=== PATIENT | female | born 1985 | race Caucasian/White ===

== ENCOUNTER 2023-12-08 12:46 | Emergency (ER) | payer SELFPAY ==
[2023-12-08] MEDS: Ondansetron 4 MG/2 ML SDV IVPUSH ONE (13:46)
[2023-12-08] MEDS: Sodium Chloride 0.9% 1,000 ML IV ONE (13:46)
[2023-12-08] MEDS: Metoclopramide 10 MG/2 ML SDV IVPUSH ONE (13:46)
[2023-12-08] MEDS: Ketorolac 30 MG/ML SDV IVPUSH ONE (13:46)
[2023-12-08] MEDS: diphenhydrAMINE 50 MG/ML SDV IVPUSH ONE (13:46)
[2023-12-08 13:52] LABS: BASOPHILS ABSOLUTE AUTO 0.06 K/uL (0.00-0.20); BASOPHILS PERCENT AUTO 0.9 % (0.0-1.0); HEMATOCRIT 37.1 % (37.0-47.0); HEMOGLOBIN 12.1 g/dL (12.0-16.0); IMMATURE GRAN ABSOLUTE AUTO 0.01 K/uL (0.00-0.05); IMMATURE GRAN PERCENT AUTO 0.1 % (0.0-0.4); LYMPHOCYTES ABSOLUTE AUTO 1.88 K/uL (1.00-4.80); LYMPHOCYTES PERCENT AUTO 28.1 % (24.0-44.0); MEAN CORPUSCULAR HEMOGLOBIN 26.7 pg (28.0-32.0); MEAN CORPUSCULAR HGB CONC 32.6 g/dL (32.0-36.0); MEAN CORPUSCULAR VOLUME 81.7 fL (83.0-99.0); MEAN PLATELET VOLUME 10.1 fL (9.4-12.3); MONOCYTES ABSOLUTE AUTO 0.69 K/uL (0.00-0.80); MONOCYTES PERCENT AUTO 10.3 % (0.0-8.0); NEUTROPHILS ABSOLUTE AUTO 3.86 K/uL (1.80-7.70); NEUTROPHILS PERCENT AUTO 57.6 % (41.0-71.0); PLATELET COUNT,PLT 272 K/uL (150-400); RED BLOOD CELL COUNT 4.54 M/uL (4.10-5.30)
[2023-12-08 14:23] LABS: ALBUMIN 3.5 g/dL (3.4-5.0); BILIRUBIN TOTAL 0.4 mg/dL (0.2-1.0); CALCIUM 8.4 mg/dL (8.5-10.1); CARBON DIOXIDE,CO2 23.7 mmol/L (21.0-32.0); CREATININE 0.8 mg/dL (0.6-1.0); EST CRCL DRUG DOSING (CG) 72.65 mL/min; POTASSIUM,K 3.9 mmol/L (3.5-5.1); PROTEIN TOTAL,TP 7.1 g/dL (6.4-8.2)
[2023-12-08 14:29] LABS: CORONAVIRUS COVID-19 NAA NEGATIVE (NEGATIVE); INFLUENZA A NAA NEGATIVE (NEGATIVE); INFLUENZA B NAA NEGATIVE (NEGATIVE)
[2023-12-08 15:49] LABS: APPEARANCE,URINE SLT CLOUDY; BILIRUBIN,URINE NEGATIVE (NEGATIVE); COLOR,URINE YELLOW; GLUCOSE,URINE NEGATIVE (NEGATIVE); KETONES,URINE NEGATIVE (NEGATIVE); LEUKOCYTE ESTERASE,URINE TRACE (NEGATIVE); NITRITE,URINE NEGATIVE (NEGATIVE); OCCULT BLOOD,URINE MODERATE (NEGATIVE); PROTEIN,URINE NEGATIVE (NEGATIVE); UROBILINOGEN,URINE 0.2 EU/dL (<2.0)
[2023-12-08 16:09] LABS: BACTERIA,URINE FEW (NEGATIVE); EPITHELIAL CELLS,URINE OCCASIONAL (NONE-FEW); TRICHOMONAS,URINE PRESENT (NEGATIVE)
== END 2023-12-08 16:12 | disposition home or self-care (01) ==
LOC: MW.ED 12:46
DX: J06.9 Acute upper respiratory infection, unspecified (principal); J44.9 Chronic obstructive pulmonary disease, unspecified; Z79.899 Other long term (current) drug therapy; Z75.8 Other problems related to medical facilities and other health care
CPT/HCPCS: 0240U; 36415; 71045; 80053; 81001; 81025; 83690; 85025; 87086; 87651; 96374; 96375; 99285; J1200; J1885; J2405; J2765; J7030; 99284

== ENCOUNTER 2023-12-27 18:19 | Emergency (ER) | payer SELFPAY ==
[2023-12-27] MEDS: Sodium Chloride 0.9% 1,000 ML IV ONE (20:02)
[2023-12-27] MEDS: Metoclopramide 10 MG/2 ML SDV IVPUSH ONE (20:03)
[2023-12-27] MEDS: Ketorolac 30 MG/ML SDV IVPUSH ONE (20:03)
[2023-12-27] MEDS: diphenhydrAMINE 50 MG/ML SDV IVPUSH ONE (20:03)
[2023-12-27] MEDS: Sodium Chloride 0.9% 2.5 ML Syringe FLUSH PRN (20:04)
[2023-12-27] MEDS: Sodium Chloride 0.9% 10 ML Syringe FLUSH PRN (20:04)
== END 2023-12-27 21:04 | disposition home or self-care (01) ==
LOC: MW.ED 18:19
DX: J06.9 Acute upper respiratory infection, unspecified (principal); G43.909 Migraine, unspecified, not intractable, without status migrainosus; I10 Essential (primary) hypertension; J44.9 Chronic obstructive pulmonary disease, unspecified; Z79.51 Long term (current) use of inhaled steroids; Z79.899 Other long term (current) drug therapy
CPT/HCPCS: 71045; 81025; 87635; 87651; 93005; 96374; 96375; 99283; J1200; J1885; J2765; J3490; J7030; 93010; 99284; U0002

== ENCOUNTER 2024-03-07 18:07 | Emergency (ER) | payer MEDICAID ==
[2024-03-07] MEDS: Dexamethasone 4 MG Tab PO ONE (19:20)
[2024-03-07] MEDS: Ondansetron 4 MG Tab.DIS PO ONE (19:21)
[2024-03-07] MEDS: Ketorolac 30 MG/ML SDV IM ONE (19:21)
[2024-03-07 20:06] LABS: CORONAVIRUS COVID-19 NAA NEGATIVE (NEGATIVE); INFLUENZA A NAA NEGATIVE (NEGATIVE); INFLUENZA B NAA NEGATIVE (NEGATIVE)
== END 2024-03-07 20:26 | disposition home or self-care (01) ==
LOC: MW.ED 18:07
DX: J02.9 Acute pharyngitis, unspecified (principal); J44.9 Chronic obstructive pulmonary disease, unspecified; I10 Essential (primary) hypertension; Z79.899 Other long term (current) drug therapy; Z75.8 Other problems related to medical facilities and other health care
CPT/HCPCS: 0240U; 87651; 96372; 99283; A9270; J1885; J8540

== ENCOUNTER 2024-04-17 00:05 | Emergency (ER) | payer MEDICAID ==
[2024-04-17] MEDS: Sodium Chloride 0.9% 1,000 ML IV ONE ×2 (00:31→03:50)
[2024-04-17 00:35] LABS: BASOPHILS ABSOLUTE AUTO 0.02 K/uL (0.00-0.20); BASOPHILS PERCENT AUTO 0.2 % (0.0-1.0); EOSINOPHILS ABSOLUTE AUTO 0.02 K/uL (0.00-0.45); EOSINOPHILS PERCENT AUTO 0.2 % (0.0-6.0); HEMATOCRIT 35.1 % (37.0-47.0); HEMOGLOBIN 11.5 g/dL (12.0-16.0); IMMATURE GRAN ABSOLUTE AUTO 0.02 K/uL (0.00-0.05); IMMATURE GRAN PERCENT AUTO 0.2 % (0.0-0.4); LYMPHOCYTES ABSOLUTE AUTO 1.51 K/uL (1.00-4.80); LYMPHOCYTES PERCENT AUTO 18.1 % (24.0-44.0); MEAN CORPUSCULAR HEMOGLOBIN 26.9 pg (28.0-32.0); MEAN CORPUSCULAR HGB CONC 32.8 g/dL (32.0-36.0); MEAN PLATELET VOLUME 10.4 fL (9.4-12.3); MONOCYTES ABSOLUTE AUTO 0.67 K/uL (0.00-0.80); MONOCYTES PERCENT AUTO 8.1 % (0.0-8.0); NEUTROPHILS ABSOLUTE AUTO 6.08 K/uL (1.80-7.70); NEUTROPHILS PERCENT AUTO 73.2 % (41.0-71.0); PLATELET COUNT,PLT 276 K/uL (150-400); RED BLOOD CELL COUNT 4.28 M/uL (4.10-5.30); WHITE BLOOD CELL COUNT,WBC 8.32 K/uL (3.9-11.3)
[2024-04-17 01:03] LABS: CALCIUM 8.6 mg/dL (8.5-10.1); CARBON DIOXIDE,CO2 25.8 mmol/L (21.0-32.0); CREATININE 0.9 mg/dL (0.6-1.0); EST CRCL DRUG DOSING (CG) 67.03 mL/min; POTASSIUM,K 3.7 mmol/L (3.5-5.1)
[2024-04-17] MEDS: Cyclobenzaprine 10 MG Tab PO ONE (01:40)
[2024-04-17] MEDS: Ondansetron 4 MG/2 ML SDV IVPUSH ONE (01:41)
[2024-04-17] MEDS: Ketorolac 30 MG/ML SDV IVPUSH ONE (01:41)
[2024-04-17 05:01] LABS: BASOPHILS ABSOLUTE AUTO 0.04 K/uL (0.00-0.20); BASOPHILS PERCENT AUTO 0.5 % (0.0-1.0); EOSINOPHILS ABSOLUTE AUTO 0.07 K/uL (0.00-0.45); EOSINOPHILS PERCENT AUTO 0.8 % (0.0-6.0); HEMATOCRIT 29.4 % (37.0-47.0); HEMOGLOBIN 9.6 g/dL (12.0-16.0); IMMATURE GRAN ABSOLUTE AUTO 0.03 K/uL (0.00-0.05); IMMATURE GRAN PERCENT AUTO 0.4 % (0.0-0.4); LYMPHOCYTES ABSOLUTE AUTO 1.98 K/uL (1.00-4.80); LYMPHOCYTES PERCENT AUTO 23.1 % (24.0-44.0); MEAN CORPUSCULAR HGB CONC 32.7 g/dL (32.0-36.0); MEAN CORPUSCULAR VOLUME 82.8 fL (83.0-99.0); MEAN PLATELET VOLUME 10.4 fL (9.4-12.3); MONOCYTES ABSOLUTE AUTO 1.13 K/uL (0.00-0.80); MONOCYTES PERCENT AUTO 13.2 % (0.0-8.0); NEUTROPHILS ABSOLUTE AUTO 5.32 K/uL (1.80-7.70); PLATELET COUNT,PLT 223 K/uL (150-400); RED BLOOD CELL COUNT 3.55 M/uL (4.10-5.30); WHITE BLOOD CELL COUNT,WBC 8.57 K/uL (3.9-11.3)
[2024-04-17] MEDS ORDERED: Tranexamic Acid in NACL,ISO-OS 1,000 MG/100 ML Bag IV ONE (05:24)
[2024-04-17] MEDS: Tranexamic Acid in NACL,ISO-OS 100 ML IV ONE (05:33)
[2024-04-17 06:35] LABS: BASOPHILS ABSOLUTE AUTO 0.03 K/uL (0.00-0.20); BASOPHILS PERCENT AUTO 0.4 % (0.0-1.0); EOSINOPHILS ABSOLUTE AUTO 0.11 K/uL (0.00-0.45); EOSINOPHILS PERCENT AUTO 1.3 % (0.0-6.0); HEMOGLOBIN 9.5 g/dL (12.0-16.0); IMMATURE GRAN ABSOLUTE AUTO 0.02 K/uL (0.00-0.05); IMMATURE GRAN PERCENT AUTO 0.2 % (0.0-0.4); LYMPHOCYTES ABSOLUTE AUTO 2.14 K/uL (1.00-4.80); LYMPHOCYTES PERCENT AUTO 25.3 % (24.0-44.0); MEAN CORPUSCULAR HEMOGLOBIN 27.2 pg (28.0-32.0); MEAN CORPUSCULAR HGB CONC 32.8 g/dL (32.0-36.0); MEAN CORPUSCULAR VOLUME 83.1 fL (83.0-99.0); MEAN PLATELET VOLUME 10.3 fL (9.4-12.3); MONOCYTES ABSOLUTE AUTO 1.02 K/uL (0.00-0.80); MONOCYTES PERCENT AUTO 12.1 % (0.0-8.0); NEUTROPHILS ABSOLUTE AUTO 5.14 K/uL (1.80-7.70); NEUTROPHILS PERCENT AUTO 60.7 % (41.0-71.0); PLATELET COUNT,PLT 222 K/uL (150-400); RED BLOOD CELL COUNT 3.49 M/uL (4.10-5.30); WHITE BLOOD CELL COUNT,WBC 8.46 K/uL (3.9-11.3)
== END 2024-04-17 07:27 | disposition home or self-care (01) ==
LOC: MW.ED 00:05
DX: N93.9 Abnormal uterine and vaginal bleeding, unspecified (principal); R51.9 Headache, unspecified; I10 Essential (primary) hypertension; J44.89 Other specified chronic obstructive pulmonary disease; Z79.51 Long term (current) use of inhaled steroids; Z79.899 Other long term (current) drug therapy
CPT/HCPCS: 36415; 80048; 84703; 85025; 96361; 96365; 96375; 99284; A9270; J1410; J1885; J2405; J7030; J3490

== ENCOUNTER 2024-05-21 21:42 | Emergency (ER) | payer MEDICAID ==
[2024-05-21] MEDS: Famotidine 40 MG/5 ML Bottle PO ONE (22:47)
[2024-05-21] MEDS: Amoxicillin/Clavulanate K 875-125 MG Tab PO ONE (22:49)
[2024-05-21] MEDS: Aluminum Hydroxide/Magnesium Hydroxide/Simethicone Susp 30 ML Cup PO ONE (22:49)
[2024-05-21] MEDS: Famotidine 20 MG Tab PO ONE (22:50)
[2024-05-21] MEDS: Acetaminophen/HYDROcodone 325-10 MG Tab PO STA (22:50)
[2024-05-21 23:26] LABS: BASOPHILS ABSOLUTE AUTO 0.06 K/uL (0.00-0.20); BASOPHILS PERCENT AUTO 0.9 % (0.0-1.0); EOSINOPHILS ABSOLUTE AUTO 0.21 K/uL (0.00-0.45); HEMATOCRIT 35.1 % (37.0-47.0); HEMOGLOBIN 11.5 g/dL (12.0-16.0); IMMATURE GRAN ABSOLUTE AUTO 0.01 K/uL (0.00-0.05); IMMATURE GRAN PERCENT AUTO 0.1 % (0.0-0.4); LYMPHOCYTES ABSOLUTE AUTO 2.51 K/uL (1.00-4.80); LYMPHOCYTES PERCENT AUTO 36.3 % (24.0-44.0); MEAN CORPUSCULAR HEMOGLOBIN 26.4 pg (28.0-32.0); MEAN CORPUSCULAR HGB CONC 32.8 g/dL (32.0-36.0); MEAN CORPUSCULAR VOLUME 80.7 fL (83.0-99.0); MEAN PLATELET VOLUME 10.7 fL (9.4-12.3); MONOCYTES ABSOLUTE AUTO 0.62 K/uL (0.00-0.80); NEUTROPHILS PERCENT AUTO 50.7 % (41.0-71.0); PLATELET COUNT,PLT 222 K/uL (150-400); RED BLOOD CELL COUNT 4.35 M/uL (4.10-5.30); WHITE BLOOD CELL COUNT,WBC 6.91 K/uL (3.9-11.3)
== END 2024-05-22 00:49 | disposition home or self-care (01) ==
LOC: MW.ED 21:42
DX: K08.89 Other specified disorders of teeth and supporting structures (principal); K21.9 Gastro-esophageal reflux disease without esophagitis; I10 Essential (primary) hypertension; J44.9 Chronic obstructive pulmonary disease, unspecified; Z79.899 Other long term (current) drug therapy; Z75.8 Other problems related to medical facilities and other health care
CPT/HCPCS: 36415; 71045; 84484; 85025; 99285; A9270; 93005